=== PATIENT | female | born 1975 | race Caucasian/White ===

== ENCOUNTER 2016-07-27 13:59 | Emergency (ER) | payer MEDICAID ==
[~2016-07-27] VITALS: Ht 162.6 cm; Wt 83.2 kg
[2016-07-27] MEDS ORDERED: FAMOTIDINE 20 MG/2 ML ONE (16:23)
[2016-07-27] MEDS ORDERED: ONDANSETRON 2MG/ML, 2ML ONE (16:23)
[2016-07-27] MEDS ORDERED: SODIUM CHLORIDE 0.9% 1,000ML IVBOLUS ONE (16:30)
[2016-07-27] MEDS ORDERED: ONDANSETRON 2MG/ML, 2ML IVPush ONE (16:30)
[2016-07-27] MEDS ORDERED: FAMOTIDINE 20 MG/2 ML IVP ONE (16:30)
[2016-07-27] MEDS ORDERED: SODIUM CHLORIDE FLUSH 10ML SYR IVF ONE (16:30)
[2016-07-27 16:39] LABS: BLOOD UREA NITROGEN 10 mg/dL (7-18)
[2016-07-27 16:45] LABS: ASPARTATE AMINO TRANSFERASE 11 U/L (15-37)
[2016-07-27] MEDS ORDERED: OMNIPAQUE 350 MG/ML, 100ML BOTTLE ONE (17:13)
[2016-07-27 18:39] VITALS: BP 143/76
== END 2016-07-27 18:51 | disposition home or self-care (01) ==
LOC: ED 18:40
DX: R10.84 Generalized abdominal pain (principal); R11.2 Nausea with vomiting, unspecified; K02.9 Dental caries, unspecified; F15.10 Other stimulant abuse, uncomplicated; M32.9 Systemic lupus erythematosus, unspecified; F17.200 Nicotine dependence, unspecified, uncomplicated
CPT/HCPCS: 36415; 74177; 80053; 81003; 83690; 84703; 85025; 85651; 96361; 96374; 96375; 99285; J2405; J7030; Q9967; S0028

== ENCOUNTER 2017-05-02 00:04 | Emergency (ER) | payer OTHER, MEDICAID ==
[~2017-05-02] VITALS: Ht 157.5 cm; Wt 65.0 kg
[2017-05-02 00:06] VITALS: BP 119/79
[2017-05-02] MEDS ORDERED: SODIUM CHLORIDE 0.9% 1,000 ML IV ONE (00:42)
[2017-05-02] MEDS ORDERED: ONDANSETRON 2MG/ML, 2ML ONE (00:48)
[2017-05-02] MEDS ORDERED: SODIUM CHLORIDE FLUSH 10ML SYR IVF ONE (01:00)
[2017-05-02] MEDS ORDERED: ONDANSETRON 2MG/ML, 2ML IVPush ONE (01:00)
[2017-05-02] MEDS ORDERED: SODIUM CHLORIDE 0.9% 1,000ML IVBOLUS ONE (01:00)
[2017-05-02 01:15] LABS: BASOPHILS # (AUTO) 0.08 x10^3/uL (0-0.1); BASOPHILS % (AUTO) 1 % (0-1); EOSINOPHILS # (AUTO) 0.11 x10^3/uL (0-0.4); EOSINOPHILS % (AUTO) 1 % (1-7); LYMPHOCYTES # (AUTO) 2.14 x10^3/uL (1-3.4); LYMPHOCYTES % (AUTO) 23 % (22-44); MD NO; MEAN CORPUSCULAR HEMOGLOBIN 19.8 pg (27.0-34.8); MEAN CORPUSCULAR VOLUME 63.7 fL (80-100); MEAN PLATELET VOLUME 7.8 fL (7.4-10.4); MONOCYTES # (AUTO) 0.33 x10^3/uL (0.2-0.8); MONOCYTES % (AUTO) 4 % (2-9); NEUTROPHILS # (AUTO) 6.55 x10^3/uL (1.8-6.8); NEUTROPHILS % (AUTO) 71 % (42-75); PLATELET COUNT 387 x10^3/uL (130-400); RED BLOOD COUNT 5.54 x10^6/uL (3.82-5.3); RED CELL DISTRIBUTION WIDTH 18.5 % (9.6-15.2)
[2017-05-02 01:28] LABS: ALANINE AMINOTRANSFERASE 13 U/L (12-78); ALBUMIN 3.8 g/dL (3.4-5.0); ANION GAP 7 mmol/L (5-15); CALCIUM 9.1 mg/dL (8.5-10.1); CHLORIDE 105 mmol/L (98-107); CREATININE 0.84 mg/dL (0.55-1.02)
[2017-05-02 01:28] LABS: CULTURE INDICATED? YES; MICROSCOPIC INDICATED
[2017-05-02 01:32] LABS: ALKALINE PHOSPHATASE 51 U/L (45-117); BILIRUBIN,TOTAL 0.5 mg/dL (0.2-1.0); TOTAL PROTEIN 8.1 g/dL (6.4-8.2)
== END 2017-05-02 02:39 | disposition home or self-care (01) ==
LOC: ED 02:37
DX: N83.01 Follicular cyst of right ovary (principal); M32.9 Systemic lupus erythematosus, unspecified
CPT/HCPCS: 36415; 76830; 80053; 81001; 84703; 85025; 87086; 96361; 96374; 99285; J2405; J7030

== ENCOUNTER 2017-05-07 21:14 | Emergency (ER) | payer OTHER, MEDICAID | END 2017-05-07 21:23 | LOC: ED 21:20 → MERGE 21:20 → ED 21:23 | DX: Z02.9 Encounter for administrative examinations, unspecified (principal) ==

== ENCOUNTER 2017-05-07 21:20 | Emergency (ER) | payer OTHER, MEDICAID ==
[~2017-05-07] VITALS: Ht 162.6 cm; Wt 70.0 kg
[2017-05-07] MEDS ORDERED: KETOROLAC 30 MG/1 ML ONE (21:57)
[2017-05-07] MEDS ORDERED: KETOROLAC 30 MG/1 ML IM ONE (22:00)
[2017-05-07 22:54] VITALS: BP 130/77
[2017-05-08] MEDS ORDERED: GADOBUTROL 7.5 MMOL/7.5 ML PFS ONE (10:22)
== END 2017-05-07 23:18 | disposition home or self-care (01) ==
LOC: ED 23:12
DX: N83.201 Unspecified ovarian cyst, right side (principal)
CPT/HCPCS: 76830; 99284; A9585

== ENCOUNTER → 2017-06-30 | Outpatient (CLI) | payer OTHER | END | disposition home or self-care (01) | LOC: RAD 09:23 | PROVIDERS: ATTEND Student in an Organized Health Care Education/Training Program | DX: N83.201 Unspecified ovarian cyst, right side (principal); D25.9 Leiomyoma of uterus, unspecified | CPT/HCPCS: 76830 ==